=== PATIENT | female | born 1970 | race Caucasian/White ===

== ENCOUNTER 2017-02-24 20:25 | Emergency (ER) | payer MEDICARE, MEDICAID ==
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
[2017-02-24] MEDS ORDERED: Morphine Sulfate 4 mg/mL 1mL Syr IVP ONE (21:05)
[2017-02-24] MEDS ORDERED: Sodium Chloride 0.9% 1,000 ML IV ONE (21:06)
[2017-02-24] MEDS ORDERED: Morphine Sulfate 4 mg/mL 1mL Syr ONE (21:22)
[2017-02-24] MEDS ORDERED: Morphine Sulfate 2 mg/mL 1mL Syr ONE (21:22)
[2017-02-24] MEDS ORDERED: HYDROmorphone 1 mg/mL 1mL Syr IVP STA (22:04)
[2017-02-24] MEDS ORDERED: HYDROmorphone 1 mg/mL 1mL Syr ONE (22:41)
--- NOTE | 2017-02-25 08:04 | Diagnostic Imaging Report ---
Head CT without intravenous contrast Indication: Trauma, headache Comparison: None Technique: Axial images were obtained from the vertex to the skull base without IV contrast. Coronal reconstructions were made. Total DLP: 588, [id number] FINDINGS: Images of the brain obtained without contrast demonstrate no acute hemorrhage. No mass lesions identified. The ventricles and basal cisterns are patent. The ferreira-white matter differentiation is preserved. There is no mass effect or midline shift. No skull fractures identified. No soft tissue swelling. The paranasal sinuses are clear. IMPRESSION: No acute intracranial abnormality.
== END 2017-02-24 23:35 | disposition home or self-care (01) ==
LOC: ER 20:25
DX: G44.309 Post-traumatic headache, unspecified, not intractable (principal)
CPT/HCPCS: 99284; 96374; 96375; 70450; J2270; J2405; 81025-TC; J1170; J7030; Z7502

== ENCOUNTER 2017-05-03 19:22 | Emergency (ER) | payer MEDICAID, MEDICARE ==
[2017-05-03] MEDS ORDERED: Hydrocodone/APAP 5mg/325mg Tab PO ONE (22:59)
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
== END 2017-05-03 23:36 | disposition home or self-care (01) ==
LOC: ER 19:22
DX: G43.709 Chronic migraine without aura, not intractable, without status migrainosus (principal); F17.200 Nicotine dependence, unspecified, uncomplicated
CPT/HCPCS: Z7610